=== PATIENT | male | born 1940 | race Caucasian/White ===

== ENCOUNTER 2023-03-30 17:03 | Inpatient (IN) | payer MEDICARE, SELFPAY ==
--- NOTE | ~2023-03-30 | XR_ITS ---
EXAMINATION: PORTABLE CHEST 1 VIEW CLINICAL INFORMATION: cp. COMPARISON: No recent pertinent prior studies are available for comparison. TECHNIQUE: Portable frontal view of the chest was obtained. FINDINGS: The lungs are hyperinflated. No focal infiltrate, effusion, edema, or pneumothorax. Cardiac and mediastinal silhouettes are within normal limits for size with vascular calcification in aorta. No acute bony abnormality seen. XR/XR chest 1V IMPRESSION: Hyperinflated but otherwise no evidence of acute disease.
--- NOTE | ~2023-03-30 | MR_ITS ---
EXAMINATION: MR BRAIN WITHOUT CONTRAST CLINICAL INFORMATION: TIA COMPARISON: CTA head and neck 03/30/2023 TECHNIQUE: Multiplanar multisequence MR imaging of the brain was obtained without intravenous contrast. FINDINGS: There is no acute infarct on diffusion-weighted imaging. There is no intracranial hemorrhage on iron-sensitive imaging. No extra-axial collection or mass effect/herniation. Patchy periventricular, deep white matter, and brainstem T2 FLAIR hyperintensities consistent with moderate underlying microangiopathy. 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 No hydrocephalus. Mild generalized cerebral volume loss with commensurate sulcal and ventricular prominence. The major flow voids at the skull base are preserved. The midline structures are normal. The cerebellar tonsils are normally positioned. The craniocervical junction is normal. Marrow signal is within normal limits. The visualized soft tissues are without significant abnormality. Right posterior ethmoid sinus opacification. Bilateral mastoid tip fluid. MR/MR head/brain wo con IMPRESSION: No acute infarct or other acute intracranial abnormality
--- NOTE | ~2023-03-30 | CT_ITS ---
EXAMINATION: CT HEAD WITHOUT CONTRAST (STROKE PROTOCOL) CLINICAL INFORMATION: Stroke protocol. Slurred speech, word searching. COMPARISON: None available. TECHNIQUE: Contiguous axial imaging was performed from the skull base to vertex without intravenous administration of contrast. This CT examination was performed using dose optimization techniques as appropriate, variously including the following: *Automated exposure control *Adjustment of mA and/or kV according to patient size (this includes techniques or standardized protocols for targeted exams where dose is matched to indication/reason for exam; i.e. extremities or head) *Use of iterative reconstruction technique DLP: 779 mGy-cm FINDINGS: There is no intracranial hemorrhage, hydrocephalus, extra-axial surface collection, midline shift, or other herniation pattern. There is loss of campbell-white differentiation in the left occipital lobe. Patchy low attenuation in the periventricular white matter consistent with chronic small vessel disease. The basilar cisterns are preserved. No significant soft tissue abnormality. No acute osseous abnormality. Mucosal retention cysts in the ethmoid sinuses. Surgical changes right maxillary sinus. CT/CT head for stroke IMPRESSION: Loss of campbell-white differentiation in the left occipital lobe without volume loss consistent with a late acute/subacute infarct. This does not fit the patient's presenting symptoms. CTA head and neck is pending. This critical result was discussed with Margaret Barcenas at 1731 hours on 03/30/2023. It was ascertained that the content and urgency of the report was understood at the time of direct communication.
--- NOTE | ~2023-03-30 | CT_ITS ---
EXAMINATION: CT ANGIOGRAM HEAD CT ANGIOGRAM NECK CLINICAL INFORMATION: Reason for Exam Slurred speech COMPARISON: Same day noncontrast head CT TECHNIQUE: Initial noncontrast customs and border protection officer imaging of the head and neck was performed. Comparison is made with noncontrast head CT from earlier today. Test bolus sequences followed by intravenous administration 70 mL of Omnipaque 350. Helical imaging was performed in the axial plane from the aortic arch to the skull vertex. Delayed postcontrast imaging of the head was also performed. The data was processed at the orthopedic radiologic technologist's workstation for generation of MIP sequences. Angled MIPs and volume rendered reformatted images were also generated at an offline 3D workstation. Stenoses are assessed in accordance with NASCET criteria unless otherwise indicated. DLP: 1629 mGy-cm This CT examination was performed using dose optimization techniques as appropriate, variously including the following: *Automated exposure control. *Adjustment of mA and/or kV according to patient size (this includes techniques or standardized protocols for targeted exams where dose is matched to indication/reason for exam; i.e. extremities or head). *Use of iterative reconstruction technique. FINDINGS: CT Head: Questionable region of hypodensity in the posterior left occipital lobe, noting that this is a region which is prone to artifact on CT There is no evidence of acute intracranial hemorrhage . Scattered hypoattenuation in the periventricular and deep white matter are consistent with moderate microangiopathy. Mcgill-white matter differentiation is preserved. The ventricles are normal in size and configuration. No evidence for obstructive hydrocephalus. No abnormal mass effect or midline shift. No extra-axial fluid collections. No pathologic intra-axial enhancement or regional oligemia. No acute soft tissue or osseous abnormalities. Mild scattered paranasal sinus mucosal thickening. Bilateral mastoid tip fluid. CT Neck: The thyroid gland and remaining cervical soft tissues are within normal limits. No significant abnormalities of the cervical spine. CT Upper Chest: The visualized lung apices and upper mediastinum are within normal limits. Neck CTA: Somewhat limited assessment of the proximal arteries in the upper mediastinum and lower neck secondary to motion artifact. Aortic Arch: Normal contour and caliber. Classic 3 vessel branching pattern of the aortic arch. Great Vessel Origins: There is calcified atherosclerotic disease involving the aortic arch branch vessel origins which are not well assessed due to streak artifact emanating from intravenous contrast within the left brachiocephalic vein. Calcified atherosclerotic disease involving the left subclavian artery proximal to the left vertebral artery origin as well as the proximal right subclavian artery without definite high-grade stenosis. Right Common Carotid Artery: Mild multifocal fibrofatty calcified atherosclerotic plaque without significant narrowing. Cervical Right Internal Carotid Artery: Calcified atherosclerotic disease involving the carotid bifurcation and proximal to mid right ICA results in high-grade approximately 80-90% stenosis of the right ICA origin and mild stenosis of the proximal to mid right cervical ICA. There is some calcified atherosclerotic disease involving the distal right cervical ICA without significant stenosis. Left Common Carotid Artery: Mild multifocal calcified atherosclerotic plaque without significant narrowing. Cervical Left Internal Carotid Artery: Calcified atherosclerotic disease involving left carotid bifurcation and proximal left ICA results in approximately 70% stenosis of the left ICA origin. Multifocal calcified atherosclerotic disease along the remainder of the left cervical ICA course with focal mild to moderate stenosis just proximal to the skull base. Cervical Right Vertebral Artery: The right vertebral artery origin and V1 segments are not visualized and likely occluded. There is reconstitution of the proximal V2 segment with moderate to high-grade stenosis of the proximal reconstituted V2 segment and otherwise patent cervical course. Cervical Left Vertebral Artery: Dominant. Suspected high-grade stenosis of the vessel origin. There is calcified atherosclerotic plaque along the V1 and proximal V2 segments without evidence of significant stenosis. Brain CTA: CTA of the head is somewhat technically limited secondary to extensive venous contamination. Intracranial Internal Carotid Arteries: Calcific atherosclerotic disease of the intracranial internal carotid arteries without occlusion or flow-limiting stenosis. Right Anterior Cerebral Artery: Normal A1 segment. Normal opacification of the distal VIVIEN segments. Left Anterior Cerebral Artery: Normal A1 segment. Normal opacification of the distal VIVIEN segments. Anterior Communicating Artery: Normal. Right Middle Cerebral Artery: Normal M1 segment of the MCA without focal stenosis or occlusion. Normal arborization of the distal segments. Left Middle Cerebral Artery: Normal M1 segment of the MCA without focal stenosis or occlusion. Normal arborization of the distal segments. Right Vertebral Artery: Mild calcified atherosclerotic disease proximally without significant stenosis. The intradural right vertebral artery appears highly stenotic at the vertebral basilar junction. Left Vertebral Artery: Mild calcified atherosclerotic disease proximally without significant stenosis. Basilar Artery: Mild to moderate stenosis of the proximal basilar artery related to fibrofatty plaque. The remainder of the basilar artery appears widely patent. Normal appearance of the proximal superior cerebellar arteries. Right Posterior Cerebral Artery: Normal P1 segment. Normal opacification of the distal CONTENT DEVELOPMENT MANAGER segments. Left Posterior Cerebral Artery: Normal P1 segment. Normal opacification of the distal CONTENT DEVELOPMENT MANAGER segments. Normal opacification of the superior sagittal, straight, transverse, and sigmoid sinuses. CT/CT angio head neck stroke IMPRESSION: Please note that evaluation of the arteries in the head and neck is somewhat technically limited including the proximal arteries in the neck secondary to motion, the aortic arch branch vessel origins related to streak artifact from intravenous contrast, and intracranial arterial vasculature related to venous contamination 1. 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 There is apparent high-grade stenosis of the distal nondominant intradural right vertebral artery at the vertebrobasilar junction. Mild to moderate stenosis of the proximal basilar artery No other arterial high-grade stenosis or large vessel occlusion of the intracranial circulation. Above impression was communicated to Dr. Barcenas on 03/30/2023 at 6:09 PM
--- NOTE | 2023-03-30 17:09 | ECG_ITS ---
Test Reason : STROKE Blood Pressure : / mmHG Vent. Rate : 083 BPM Atrial Rate : 083 BPM P-R Int : 214 ms QRS Dur : 156 ms QT Int : 446 ms P-R-T Axes : -05 -32 035 degrees QTc Int : 524 ms Sinus rhythm with 1st degree A-V block Left axis deviation Right bundle branch block Minimal voltage criteria for LVH, may be normal variant ( R in aVL ) Abnormal ECG No previous ECGs available Referred By: Margaret Barcenas Electronically Signed By:OVIDIO LOPEZ
[2023-03-30 17:14] LABS: Glucose, Whole Blood 192 mg/dL (60-115)
--- NOTE | 2023-03-30 17:23 | ED_ITS ---
HPI - Neuro Symptoms/Deficit General Chief Complaint: Neuro Symptoms/Deficit Stated Complaint: stroke alert, per ems Time Seen by Provider: 03/30/23 17:08 History of Present Illness HPI Narrative: patient is an 83-year-old male he was at a wedding. Having sudden onset of dizziness. Also had difficulty with his speech. Lasting for about a minute. His family stated he had a question facial droop. On EMS arrival the symptom was resolving. Patient's symptom has since completely resolved on arrival in the emergency department. Had no difficulty with speech normal facial droop patient from home. No history of diabetes, hypertension, high cholesterol. Not a smoker. Never had a heart attack. Relatively good health. Patient did admit to having 1 drink of alcohol he was at a wedding today. Denies any other recreational drug use. There is no systemic complaints. Related Data Allergies Allergy/AdvReac Type Severity Reaction Status Date / Time No Known Allergies Allergy Verified 03/30/23 17:09 Review of Systems 2 Review of Systems: No fever no chills no recreational drug use no history of hypoglycemia no history of diabetes Yes all other systems are reviewed and are negative [facility] Past Medical History Attestation statement: The following information was validated with the patient. Social History Social History Alcohol intake: current Alcohol type: beer Advance Directives: Yes Advance Directives Information Provided: No Advance Directives on File: No Physical Exam 2 Vital Signs: Vital Signs: Last Vital Signs Temp 97.4 F 03/30/23 17:37 Pulse 83 03/30/23 18:00 Resp 12 03/30/23 18:00 BP 199/64 H 03/30/23 18:00 Pulse Ox 99 03/30/23 18:00 O2 Del Method Room Air 03/30/23 18:00 BMI result Body Mass Index 26.4 Appearance: Alert. Oriented X3. No acute distress. Eyes: Pupils equal, round and reactive to light. ENT: Pharynx normal. Neck: Normal inspection. Neck supple. No lymph nodes noted. No crepitus CVS: Normal heart rate and rhythm. Pulses normal. Normal S1 and S2 Respiratory: No respiratory distress. Breath sounds normal. No Wheezing. No rales Abdomen: Soft and nontender. No rigidity. No distention. good BS x4 Skin: Skin warm and dry. Normal skin color. Normal skin turgor. Extremities: No lower extremity edema. Neurovascular intact to all extremities. No Lacerations. No Rash Neuro: Oriented X 3. No motor deficit. No sensory deficit. Moving all extermities. No slurred speech Medications Administered Discontinued Medications Generic Name Dose Route Start Last Admin Trade Name Blayneq PRN Reason Stop Dose Admin Iohexol 100 ml 03/30/23 17:24 03/30/23 17:25 Iohexol 350 Mg/Ml 100 Ml Infus..Btl IV 03/30/23 17:25 70 ml ONCE ONE Administration Medical Decision Making Medical Decision Making [facility] Narrative: patient's NIH stroke scale was 0. CT scan of the head showed area of subacute stroke in the occipital area. Not explaining patient's symptoms. CTA showed multiple occlusions intervertebral and in the carotid with collateral circulations. Fell patient is not a candidate for tPA given symptom has completely resolved. Will admit patient for further evaluation. Repeat exam patient is unchanged. NIH stroke scale was 0. case to be consulted by the hospitalist team for admission case discussed with hospitalist for admission. Neurologically unchanged completely intact. Differential Diagnosis Differential Diagnoses: The differential diagnosis associated with the presentation includes CVA, intracranial bleed, hypoglycemia Admission/Observation Consideration of admission/observation: Escalation of care including admission/observation considered Consult Healthcare Provider Management of the patient was discussed with: Hospitalist Lab Data [facility] Lab Attestation statement: I reviewed the patient's lab results. 03/30/23 17:58 03/30/23 17:58 Labs: Lab Results 03/30/23 03/30/23 Range/Units 17:09 17:58 WBC 9.6 (4.8-10.8) X10*3/uL RBC 4.88 (4.60-5.80) X10*6/uL Hgb 13.9 L (14.0-18.0) g/dl Hct 41.2 L (42.0-52.0) % MCV 84.4 (80.0-98.0) fL MCH 28.5 (27.0-33.0) pg MCHC 33.7 (31.0-36.0) g/dl RDW 14.6 (11.0-16.0) % Plt Count 237 (160-400) X10*3/uL MPV 9.5 (9.4-12.4) fL Immature Gran % (Auto) 0.4 (0.0-0.4) % Neut % (Auto) 81.7 H (45-73) % Lymph % (Auto) 10.6 L (20-40) % [place] % (Auto) 6.3 (2-11) % Eos % (Auto) 0.6 (0-4) % Baso % (Auto) 0.4 (0-2) % Lymph # (Auto) 1.0 L (1.2-4.9) X10*3/uL [place] # (Auto) 0.6 (0.1-1.2) X10*3/uL Eos # (Auto) 0.1 (0.0-0.4) X10*3/uL Baso # (Auto) 0.0 (0.0-0.2) X10*3/uL Abs Immat Gran (auto) 0.04 H (0.00-0.03) X10*3/uL Absolute Neuts (auto) 7.8 (2.0-8.3) x10*3/uL Absolute Nucleated RBC 0.000 (0.0-0.012) X10*3/uL Nucleated RBC % (auto) 0.0 (0.0-0.2) /100WBC PT 11.4 (11.1-13.3) SEC Whole Blood PT 12.3 (11.1-13.5) sec INR 0.9 (0.9-1.1) Whole Blood INR 1.0 (0.9-1.1) APTT 29.4 (26.0-36.4) SEC Sodium 140 (135-145) mmol/L Potassium 3.9 (3.3-5.1) mmol/L Chloride 109 H (96-108) mmol/L Carbon Dioxide 21 L (22-29) mmol/L Anion Gap 14 (12-20) BUN 25 H (9-16) mg/dL Creatinine 1.13 (0.5-1.4) mg/dL Estim Creat Clear Calc 54.6 Estimated GFR > 60 POC Glucose 192 H (60-115) mg/dL Random Glucose 194 H (60-115) mg/dL Calcium 9.0 (8.4-10.2) mg/dL Phosphorus 3.6 (2.7-4.5) mg/dL Magnesium 2.2 (1.6-2.6) mg/dL Total Bilirubin 0.3 (0.0-1.0) mg/dL Direct Bilirubin 0.1 (0.0-0.5) mg/dL AST 20 (5-37) U/L ALT 20 (0-40) U/L Alkaline Phosphatase 78 (39-117) U/L Total Creatine Kinase 61 (38-174) U/L Troponin I High Sens 3.3 (<3.5-35.0) ng/L Total Protein 6.7 (6.5-8.0) g/dL Albumin 3.7 (3.5-5.0) g/dL Ethyl Alcohol < 10 mg/dL Independent Interpretation I performed an independent interpretation of an: EKG Interpretation: my interpretation the patient's EKG showed a sinus rhythm heart rate is 80 [place] QRS QTC within normal limits is no acute ST segment elevation Independent Historian Clinical information obtained from an independent historian. History obtained from or confirmed by: Spouse additional history obtained through the spouse External Record Review there is no old record to be examine at [facility] Tests considered The following testing was considered but not selected: MRI of the brain but not available NIH Stroke Scale Internal: Initial- Upon Arrival Time: 18:51 Level of Consciousness: Alert Level of Consciousness Questions: Answers both questions correctly Level of Consciousness Commands: Performs both tasks correctly Best Gaze: Normal Visual: No visual loss Facial Palsy: Normal Motor Arm (Right): No drift Motor Arm (Left): No drift Motor Leg (Right): No drift Motor Leg (Left): No drift Limb Ataxia: Absent Sensory: Normal Best Language: No aphasia Dysarthia: Normal Extinction and Inattention: No abnormality Score: 0 Discharge Plan Discharge Clinical Impression: Cerebrovascular accident, Transient cerebral ischemia Patient Disposition: Admitted As Inpatient
[2023-03-30 17:24] LABS: Prothrombin Time Whole Bld POC 12.3 sec (11.1-13.5)
[2023-03-30] MEDS: iohexoL 350 MG/ML 100 ML INFUS..BTL IV (17:25)
[2023-03-30 17:37] VITALS: BP 204/62; BP 215/68; PULSE 78; PULSE 87; RESP 17; TEMP 36.3; O2SAT 97; BMI 26.4
[2023-03-30 18:00] VITALS: BP 199/64; PULSE 83; RESP 12; O2SAT 99
[2023-03-30 18:02] LABS: MANUAL DIFF FLAG NO
[2023-03-30 18:03] LABS: Basophils Percent Auto 0.4 % (0-2); Eosinophils Absolute Auto 0.1 X10*3/uL (0.0-0.4); Eosinophils Percent Auto 0.6 % (0-4); Hematocrit 41.2 % (42.0-52.0); Hemoglobin 13.9 g/dl (14.0-18.0); Imm Gran Abs Auto 0.04 X10*3/uL (0.00-0.03); Imm Gran Pct Auto 0.4 % (0.0-0.4); Lymphocytes Percent Auto 10.6 % (20-40); Mean Corpuscular HGB Conc 33.7 g/dl (31.0-36.0); Mean Corpuscular Hemoglobin 28.5 pg (27.0-33.0); Mean Corpuscular Volume 84.4 fL (80.0-98.0); Mean Platelet Volume 9.5 fL (9.4-12.4); Monocytes Absolute Auto 0.6 X10*3/uL (0.1-1.2); Monocytes Percent Auto 6.3 % (2-11); Neutrophils Absolute Auto 7.8 x10*3/uL (2.0-8.3); Neutrophils Percent Auto 81.7 % (45-73); Platelet Count 237 X10*3/uL (160-400); Red Blood Count 4.88 X10*6/uL (4.60-5.80); Red Cell Distribution Width 14.6 % (11.0-16.0); White Blood Count 9.6 X10*3/uL (4.8-10.8)
[2023-03-30 18:10] LABS: INTERNATIONAL NORM RATIO 0.9 (0.9-1.1); Prothrombin Time 11.4 SEC (11.1-13.3)
[2023-03-30 18:12] LABS: Partial Thromboplastin Time 29.4 SEC (26.0-36.4)
[2023-03-30 18:18] LABS: Alanine Aminotransferase 20 U/L (0-40); Albumin Level 3.7 g/dL (3.5-5.0); Alkaline Phosphatase 78 U/L (39-117); Anion Gap 14 (12-20); Aspartate Amino Transferase 20 U/L (5-37); Bilirubin Direct 0.1 mg/dL (0.0-0.5); Bilirubin Total 0.3 mg/dL (0.0-1.0); Blood Urea Nitrogen 25 mg/dL (9-16); Carbon Dioxide 21 mmol/L (22-29); Chloride 109 mmol/L (96-108); Creatinine Clr Calc Pharmacy 54.6; Estimated Glomerular Filt Rate > 60; Ethanol < 10 mg/dL; Glucose Random 194 mg/dL (60-115); Magnesium 2.2 mg/dL (1.6-2.6); Phosphorus 3.6 mg/dL (2.7-4.5); Potassium 3.9 mmol/L (3.3-5.1); Sodium 140 mmol/L (135-145); Total Protein 6.7 g/dL (6.5-8.0)
[2023-03-30 18:24] LABS: Troponin-I High Sensitivity 3.3 ng/L (<3.5-35.0)
[2023-03-30 18:25] LABS: Stroke Lab Use COMPLETE
--- NOTE | 2023-03-30 19:24 | PC.NURSE ---
pt given sandwich, applesauce, and gingerale, tolerating PO, present at the bedside, denies any complaints at this time
--- NOTE | 2023-03-30 20:22 | P.HPHOSP_ITS ---
History of Present Illness Date of Service: 03/30/23 Attending physician on admission: Natacha Kent Chief Complaint: slurred speech 83-year-old male with history of hyperlipidemia, peripheral artery disease s/p left fem-fem bypass graft thrombosis, claudication, hypertension, anxiety who is a current everyday nicotine vaper presented to the ED via EMS from a wedding due to sudden-onset dizziness, word-finding difficulty, and facial droop noted by family. On EMS arrival symptoms resolving. States they lasted for about a minute. He has never had similar symptoms before. His states he was also very pale. Denies any focal weakness or paresthesias. No dysphagia or visual changes. He does admit to having 1 drink of alcohol while he was at the wedding but denies any other substance use except for nicotine vaping as above. On arrival, patient hypertensive to 215/68 vitals otherwise normal. Blood pressure on admission 126/70-no antihypertensives administered. Hematology studies unremarkable. Renal function and electrolyte levels within normal limits. Lipid panel pending. Ethyl alcohol level below detectable limits. Chest x-ray showed hyperinflated lungs but otherwise no evidence of acute disease. Head CT shows loss of campbell-white matter differentiation in the left occipital lobe without volume loss consistent with a late acute/subacute infarct which does not fit the patient's presenting symptoms. Head CTA shows extensive atherosclerotic disease in the neck with notable high-grade stenoses and inclusions including occluded origin of the non dominant right vertebral artery with reconstitution of the V2 segments tandem focal moderate to high stenosis just distal to this reconstitution. There is also heavy calcified atherosclerotic disease involving the carotid bifurcations and proximal internal carotid arteries resulting in high-grade ICA stenosis measuring approximately 70% at the left ICA origin at 80-90% of the right ICA origin. There is also suspected high-grade stenosis of the dominant left vertebral artery origin. There is apparent high-grade stenosis of the distal non dominant intradural right vertebral artery at the vertebrobasilar junction and mild to moderate stenosis of the proximal basilar artery without any other arterial high-grade stenoses or LVO. EKG shows sinus rhythm, rate 83 with first-degree AV carole block and right bundle branch block. Review of Systems 2 Review of Systems: General: No fevers, malaise, unintentional weight loss HEENT: No blurred vision, diplopia. No sore throat, nasal congestion, rhinorrhea, sinus pain, ear pain Cardiovascular: No chest pain, palpitations, or leg edema Respiratory: No shortness of breath, wheezing, cough GI: No abdominal pain, nausea, vomiting, diarrhea, constipation, melena, hematochezia : No dysuria, hematuria, increased urinary frequency, decreased urinary output MSK: No myalgia, back pain Neuro: No headaches, weakness, paresthesias. +slurred speech, +facial droop Skin: No rashes or lesions [facility] Medical History Anxiety Nicotine dependence Peripheral artery disease Hyperlipidemia Hypertension Surgical History S/P femoral-femoral bypass surgery Social History Alcohol intake: current Alcohol type: beer Advance Directives: Yes Advance Directives Information Provided: No Advance Directives on File: No Meds Allergies Allergy/AdvReac Type Severity Reaction Status Date / Time No Known Allergies Allergy Verified 03/30/23 17:09 Active Medications: Current Medications Acetaminophen (Acetaminophen 325 Mg Tablet) 650 mg PO Q6H PRN PRN Reason: Pain, Mild (Pain Scale 1-3) Aspirin (Aspirin Enteric Coated 81 Mg Tablet.Dr) 81 mg PO DAILY JOLENE Atorvastatin Calcium (Atorvastatin Calcium 40 Mg Tablet) 40 mg PO BEDTIME JOLENE Docusate Sodium (Docusate Sodium 100 Mg Capsule) 100 mg PO DAILY PRN PRN Reason: Constipation Enoxaparin Sodium (Enoxaparin Sodium 40 Mg/0.4 Ml Syringe) 40 mg SUBCUT Q24H JOLENE Ondansetron HCl (Ondansetron Hcl 4 Mg/2 Ml Vial) 4 mg IVPUSH Q8H PRN PRN Reason: Nausea and Vomiting Sodium Chloride (0.9 % Sodium Chloride Flush 3 Ml Syringe) 3 ml IVFLUSH QSHIFT JOLENE Physical Exam 2 Vital Signs and Narrative: Vital Signs: Last Vital Signs Temp 97.4 F 03/30/23 17:37 Pulse 83 03/30/23 18:00 Resp 12 03/30/23 18:00 BP 199/64 H 03/30/23 18:00 Pulse Ox 99 03/30/23 18:00 O2 Del Method Room Air 03/30/23 18:00 BMI result Body Mass Index 26.4 Constitutional - Awake and Alert, No apparent distress Eyes - PERRLA, EOMI Cardiovascular - S1S2, RRR, No edema Respiratory - Normal lung expansion, Normal respiratory effort, No respiratory distress, CTA bilaterally Gastrointestinal - NT / ND; +BS; No rebound or guarding Extremities - no calf tenderness bilaterally, no swelling Skin - Warm/Dry Neurological - Alert & oriented x3, CN II-XII in tact, 5/5 strength BUE and BLE Psychological - Appropriate affect Results Labs 03/30/23 17:58 03/30/23 17:58 Labs: Laboratory Results - last 24 hr 03/30/23 03/30/23 17:09 17:58 MCV 84.4 MCH 28.5 MCHC 33.7 RDW 14.6 Plt Count 237 MPV 9.5 Immature Gran % (Auto) 0.4 Neut % (Auto) 81.7 H Lymph % (Auto) 10.6 L [place] % (Auto) 6.3 Eos % (Auto) 0.6 Baso % (Auto) 0.4 Lymph # (Auto) 1.0 L [place] # (Auto) 0.6 Eos # (Auto) 0.1 Baso # (Auto) 0.0 Abs Immat Gran (auto) 0.04 H Absolute Neuts (auto) 7.8 Absolute Nucleated RBC 0.000 Nucleated RBC % (auto) 0.0 PT 11.4 Whole Blood PT 12.3 INR 0.9 Whole Blood INR 1.0 APTT 29.4 Anion Gap 14 Estim Creat Clear Calc 54.6 Estimated GFR > 60 POC Glucose 192 H Random Glucose 194 H Calcium 9.0 Phosphorus 3.6 Magnesium 2.2 Total Bilirubin 0.3 Direct Bilirubin 0.1 AST 20 ALT 20 Alkaline Phosphatase 78 Total Creatine Kinase 61 Total Protein 6.7 Albumin 3.7 Ethyl Alcohol < 10 Imaging Radiologist's Impressions: Impressions Head CT 03/30/23 17:14 IMPRESSION: Loss of campbell-white differentiation in the left occipital lobe without volume loss consistent with a late acute/subacute infarct. This does not fit the patient's presenting symptoms. CTA head and neck is pending. This critical result was discussed with Margaret Barcenas at 1731 hours on 03/30/2023. It was ascertained that the content and urgency of the report was understood at the time of direct communication. Chest X-Ray 03/30/23 17:20 IMPRESSION: Hyperinflated but otherwise no evidence of acute disease. Head/Neck CTA 03/30/23 17:32 IMPRESSION: Please note that evaluation of the arteries in the head and neck is somewhat technically limited including the proximal arteries in the neck secondary to motion, the aortic arch branch vessel origins related to streak artifact from intravenous contrast, and intracranial arterial vasculature related to venous contamination 1. 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 There is apparent high-grade stenosis of the distal nondominant intradural right vertebral artery at the vertebrobasilar junction. Mild to moderate stenosis of the proximal basilar artery No other arterial high-grade stenosis or large vessel occlusion of the intracranial circulation. Above impression was communicated to Dr. Barcenas on 03/30/2023 at 6:09 PM Assessment and Plan (1) Transient cerebral ischemia: Status: Acute Plan 83-year-old male with history of hyperlipidemia, peripheral artery disease s/p left fem-fem bypass graft thrombosis, claudication, hypertension, anxiety who is a current everyday nicotine vaper to be observed for suspected TIA #Acute suspected TIA -symptoms lightheadedness, facial droop, and slurred speech now fully resolved -will also check orthostatic vital signs -head CT negative for any acute intracranial abnormality that could explain the symptoms. Does show possible late acute/subacute infarct in the left occipital lobe. Extensive atherosclerotic and stenotic changes in the head/neck CTA -neurochecks -ASA 325 mg now, ASA 81 mg daily -change simvastatin to atorvastatin 40 mg daily -lipid profile pending -neurology consult -consider vascular surgery consult -echocardiogram a.m. -MRI a.m. -monitor on telemetry # peripheral artery disease -extensive arterial disease noted on head/neck CTA -consider outpatient vascular surgery consult -continue baby aspirin daily -Continue pentoxifylline #HLD -atorvastatin as above -lipid panel pending #HTN -Pt normotensive on admission -continue amlodipine 5 mg daily # nicotine dependence -vapes nicotine regularly, declines NRT cessation counseling advised DVT prophylaxis- lovenox Full code Time Spent With Patient Time: Total time managing care of this patient today ____ minutes. Quality Stroke Does the patient have a stroke diagnosis?: Yes Reason for No Anti-thrombotic by Day Two: Drug treatment not indicated VTE Prior VTE?: No VTE Risk Level:: Medical - moderate - high VTE Device Contraindication: Treatment Not Indicated VTE Drug Contraindication: N/A - Med Ordered
[2023-03-30 20:30] LABS: Appearance Urine Clear; Color Urine Yellow; Glucose Urine UA 100 mg/dL (Negative); Leukocyte Esterase Urine Negative (Negative); Nitrite Urine Negative (Negative); PH 5.5 (5.0-9.0); Specific Gravity - Urine >= 1.030 (1.005-1.025); UMIC TRIGGER UACC YES; Urine Blood Negative (Negative); Urine Ketones Trace mg/dL (Negative); Urine Protein 100 (2+) mg/dL (Neg-Trace)
[2023-03-30 20:33] LABS: Cholesterol 198 mg/dL (<200); HDL Cholesterol 47 mg/dL (>40); LDL Cholesterol Calculated 96 mg/dL (<100); Triglycerides 276 mg/dL (<150)
[2023-03-30 20:42] LABS: Bacteria Urine None Seen (None Seen); Hyaline Casts Urine 0-2 /LPF (0-2); RBC Urine 0-2 /HPF (0-2); Squamous Epithelial Cell Urine 0-2 /HPF (0-2); WBC Urine 0-5 /HPF (0-5)
[2023-03-30] MEDS: Enoxaparin Sodium 40 MG/0.4 ML SYRINGE SUBCUT (20:50)
[2023-03-30] MEDS: Aspirin Enteric Coated 325 MG TABLET.DR PO (20:51)
[2023-03-30] MEDS: Atorvastatin Calcium 40 MG TABLET PO (20:51)
[2023-03-30 22:05] VITALS: BP 170/56; PULSE 74; RESP 15; TEMP 36.8; O2SAT 97
[2023-03-31] MEDS: 0.9 % Sodium Chloride Flush 3 ML SYRINGE IVFLUSH ×2 (01:07→09:29)
[2023-03-31 01:39] VITALS: BMI 25.5
[2023-03-31 02:49] VITALS: BP 175/72; PULSE 58; RESP 15; TEMP 36.5; O2SAT 96
[2023-03-31 04:00] VITALS: BP 174/74; PULSE 77; RESP 14; TEMP 37.1; O2SAT 98
[2023-03-31 06:08] LABS: MANUAL DIFF FLAG NO
[2023-03-31 06:13] LABS: Basophils Percent Auto 0.2 % (0-2); Eosinophils Absolute Auto 0.1 X10*3/uL (0.0-0.4); Eosinophils Percent Auto 1.7 % (0-4); Hematocrit 36.6 % (42.0-52.0); Hemoglobin 12.4 g/dl (14.0-18.0); Imm Gran Abs Auto 0.04 X10*3/uL (0.00-0.03); Imm Gran Pct Auto 0.5 % (0.0-0.4); Lymphocytes Absolute Auto 1.9 X10*3/uL (1.2-4.9); Lymphocytes Percent Auto 22.8 % (20-40); Mean Corpuscular HGB Conc 33.9 g/dl (31.0-36.0); Mean Corpuscular Hemoglobin 28.6 pg (27.0-33.0); Mean Corpuscular Volume 84.5 fL (80.0-98.0); Mean Platelet Volume 9.8 fL (9.4-12.4); Monocytes Absolute Auto 0.7 X10*3/uL (0.1-1.2); Neutrophils Absolute Auto 5.4 x10*3/uL (2.0-8.3); Neutrophils Percent Auto 65.8 % (45-73); Platelet Count 254 X10*3/uL (160-400); Red Blood Count 4.33 X10*6/uL (4.60-5.80); Red Cell Distribution Width 14.6 % (11.0-16.0); White Blood Count 8.2 X10*3/uL (4.8-10.8)
[2023-03-31 06:39] LABS: Anion Gap 11 (12-20); Blood Urea Nitrogen 21 mg/dL (9-16); Calcium 8.6 mg/dL (8.4-10.2); Carbon Dioxide 25 mmol/L (22-29); Chloride 108 mmol/L (96-108); Estimated Glomerular Filt Rate > 60; Glucose Random 126 mg/dL (60-115); Potassium 3.8 mmol/L (3.3-5.1); Sodium 140 mmol/L (135-145)
[2023-03-31 07:50] VITALS: BP 180/82; PULSE 62; RESP 13; TEMP 37.1; O2SAT 96
--- NOTE | 2023-03-31 08:09 | MHC.CM.PN ---
CM met with Patient at bedside and addressed CADENA with him, providing Patient with the original and placing a copy on the chart. 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 Patient's goal is to return home self care and CM has initiated and will follow for dc planning.PCP is Dr. Jeremie Chery.
--- NOTE | 2023-03-31 08:22 | PHA.MEDREC ---
Pharmacy Consult ? Medication Reconciliation Pharmacy has completed the medication reconciliation. spoke with patient to confirm medications.
[2023-03-31] MEDS: Aspirin Enteric Coated 81 MG TABLET.DR PO (09:28)
[2023-03-31] MEDS: Pentoxifylline ER 400 MG TABLET.ER PO ×2 (09:28→15:41)
[2023-03-31 11:35] VITALS: BP 158/60; PULSE 58; RESP 15; TEMP 36.8; O2SAT 98
--- NOTE | 2023-03-31 12:44 | P.PNIM_ITS ---
Subjective Subjective Date of Service: 03/31/23 Interval History: dizziness, word-finding difficulty, and facial droop have resolved no weakness Review of Systems Review of Systems: Yes all other systems are reviewed and are negative Physical Exam 2 Vital Signs: Vital Signs: Last Vital Signs Temp 98.2 F 03/31/23 11:35 Pulse 58 03/31/23 11:35 Resp 15 03/31/23 11:35 BP 158/60 H 03/31/23 11:35 Pulse Ox 98 03/31/23 11:35 O2 Del Method Room Air 03/31/23 11:35 BMI result Body Mass Index 25.5 Gen: in no acute distress HEENT: sclera anicteric, moist mucus membranes Neck: supple Lungs: clear to auscultation bilaterally Heart: regular rate and rhythm, no murmurs Abd: soft, non-tender, non-distended Ext: no edema Skin: warm/well-perfused Neuro: alert and oriented x3, no facial droop, no pronator drift, no extremity weakness Psych: appropriate affect Objective Data Active Medications Acetaminophen (Acetaminophen 325 Mg Tablet) 650 mg PO Q6H PRN PRN Reason: Pain, Mild (Pain Scale 1-3) Amlodipine Besylate (Amlodipine Besylate 5 Mg Tablet) 5 mg PO DAILY [facility]; Protocol Aspirin (Aspirin Enteric Coated 81 Mg Tablet.) 81 mg PO DAILY [facility] Last Admin: 03/31/23 09:28 Dose: 81 mg Documented By: KHOA Atorvastatin Calcium (Atorvastatin Calcium 40 Mg Tablet) 40 mg PO BEDTIME [facility] Last Admin: 03/30/23 20:51 Dose: 40 mg Documented By: REBEKAH Docusate Sodium (Docusate Sodium 100 Mg Capsule) 100 mg PO DAILY PRN PRN Reason: Constipation Enoxaparin Sodium (Enoxaparin Sodium 40 Mg/0.4 Ml Syringe) 40 mg SUBCUT Q24H [facility] Last Admin: 03/30/23 20:50 Dose: 40 mg Documented By: REBEKAH Multivitamins/Vitamin C (Multivitamin Tablet) 1 tab PO DAILY [facility] Ondansetron HCl (Ondansetron Hcl 4 Mg/2 Ml Vial) 4 mg IVPUSH Q8H PRN PRN Reason: Nausea and Vomiting Pentoxifylline (Pentoxifylline Er 400 Mg Tablet.Er) 400 mg PO TID [facility] Last Admin: 03/31/23 09:28 Dose: 400 mg Documented By: KHOA Sodium Chloride (0.9 % Sodium Chloride Flush 3 Ml Syringe) [facility] Last Admin: 03/31/23 09:29 Dose: 3 ml Documented By: KHOA Labs 03/31/23 05:49 03/31/23 05:49 Labs: Laboratory Results - last 24 hr 03/30/23 03/30/23 03/30/23 17:09 17:58 20:23 MCV 84.4 MCH 28.5 MCHC 33.7 RDW 14.6 Plt Count 237 MPV 9.5 Immature Gran % (Auto) 0.4 Neut % (Auto) 81.7 H Lymph % (Auto) 10.6 L [place] % (Auto) 6.3 Eos % (Auto) 0.6 Baso % (Auto) 0.4 Lymph # (Auto) 1.0 L [place] # (Auto) 0.6 Eos # (Auto) 0.1 Baso # (Auto) 0.0 Abs Immat Gran (auto) 0.04 H Absolute Neuts (auto) 7.8 Absolute Nucleated RBC 0.000 Nucleated RBC % (auto) 0.0 PT 11.4 Whole Blood PT 12.3 INR 0.9 Whole Blood INR 1.0 APTT 29.4 Anion Gap 14 Estim Creat Clear Calc 54.6 Estimated GFR > 60 POC Glucose 192 H Random Glucose 194 H Calcium 9.0 Phosphorus 3.6 Magnesium 2.2 Total Bilirubin 0.3 Direct Bilirubin 0.1 AST 20 ALT 20 Alkaline Phosphatase 78 Total Creatine Kinase 61 Total Protein 6.7 Albumin 3.7 Triglycerides 276 H Cholesterol 198 LDL Cholesterol, Calc 96 HDL Cholesterol 47 Urine Color Yellow Urine Appearance Clear Urine pH 5.5 Ur Specific [place] >= 1.030 H Urine Protein 100 (2+) H Urine Glucose (UA) 100 H Urine Ketones Trace Urine Blood Negative Urine Nitrite Negative Ur Leukocyte Esterase Negative Urine RBC 0-2 Urine WBC 0-5 Ur Squamous Epith Cells 0-2 Urine Bacteria None Seen Hyaline Casts 0-2 Ethyl Alcohol < 10 03/31/23 05:49 MCV 84.5 MCH 28.6 MCHC 33.9 RDW 14.6 Plt Count 254 MPV 9.8 Immature Gran % (Auto) 0.5 H Neut % (Auto) 65.8 Lymph % (Auto) 22.8 [place] % (Auto) 9.0 Eos % (Auto) 1.7 Baso % (Auto) 0.2 Lymph # (Auto) 1.9 [place] # (Auto) 0.7 Eos # (Auto) 0.1 Baso # (Auto) 0.0 Abs Immat Gran (auto) 0.04 H Absolute Neuts (auto) 5.4 Absolute Nucleated RBC 0.000 Nucleated RBC % (auto) 0.0 PT Whole Blood PT INR Whole Blood INR APTT Anion Gap 11 L Estim Creat Clear Calc 67.0 Estimated GFR > 60 POC Glucose Random Glucose 126 H Calcium 8.6 Phosphorus Magnesium Total Bilirubin Direct Bilirubin AST ALT Alkaline Phosphatase Total Creatine Kinase Total Protein Albumin Triglycerides Cholesterol LDL Cholesterol, Calc HDL Cholesterol Urine Color Urine Appearance Urine pH Ur Specific [place] Urine Protein Urine Glucose (UA) Urine Ketones Urine Blood Urine Nitrite Ur Leukocyte Esterase Urine RBC Urine WBC Ur Squamous Epith Cells Urine Bacteria Hyaline Casts Ethyl Alcohol Assessment and Plan (1) Transient cerebral ischemia: Status: Acute Plan d2 83yo M with HLD, PAD s/p L fem-fem bypass, HTN, tobacco abuse presenting after episode of sudden-onset dizziness, word-finding difficulty, and facial droop that resolved after 1 found to be hypretensive, CT with late acute/subacute infarct in L occipital lobe, CTA with extensive atherosclerotic disease in the neck: 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 with reconstitution of the V2 segment and tandem focal moderate to high-grade stenosis just distal to this reconstitution * Heavy calcified atherosclerotic disease involving the carotid bifurcations and proximal internal carotid arteries resulting in high-grade ICA stenosis measuring approximately 70% at the left ICA origin and 80-90% of the right ICA origin * Suspected high-grade stenosis of the dominant left vertebral artery origin CVA - MRI - Neurology consult - ASA, atorvastatin - TTE, cardiac monitoring PVD - pentoxyfilline - ASA, atorvastatin - Vascular Surgery outpt f/u HTN - amlodipine tobacco abuse - declines NRT VTE ppx - LMWH dispo - likely home eventually In my clinical judgment, the patient requires continued inpatient hospitalization for the following reasons: CVA workup Time Spent With Patient Time: Total time managing care of this patient today ____35 minutes. Quality Stroke Does the patient have a stroke diagnosis?: Yes Reason for No Anti-thrombotic by Day Two: Drug treatment not indicated VTE Prior VTE?: No VTE Risk Level:: Medical - moderate - high VTE Device Contraindication: Treatment Not Indicated VTE Drug Contraindication: N/A - Med Ordered
--- NOTE | 2023-03-31 15:12 | PM.DS ---
DS: Providers Provider Date of Service: 03/31/23 Date of admission: 03/31/23 12:55 Date of discharge: 03/31/23 Primary care physician: Jeremie Chery MD Consults: 03/30/23 20:19 Consult to Neurology Routine Consulting Provider: Sonya Lima Reason for consultation: ?tia DS: Diagnosis Discharge Diagnosis (1) Transient cerebral ischemia: Status: Acute (2) Cerebrovascular disease: Status: Acute DS: Summary Hospital Course Hospital Course: from admission H+P by hospitalist JO Partida, 03/30/23: 83-year-old male with history of hyperlipidemia, peripheral artery disease s/p left fem-fem bypass graft thrombosis, claudication, hypertension, anxiety who is a current everyday nicotine vaper presented to the ED via EMS from a wedding due to sudden-onset dizziness, word-finding difficulty, and facial droop noted by family. On EMS arrival symptoms resolving. States they lasted for about a minute. He has never had similar symptoms before. His states he was also very pale. Denies any focal weakness or paresthesias. No dysphagia or visual changes. He does admit to having 1 drink of alcohol while he was at the wedding but denies any other substance use except for nicotine vaping as above. On arrival, patient hypertensive to 215/68 vitals otherwise normal. Blood pressure on admission 126/70-no antihypertensives administered. Hematology studies unremarkable. Renal function and electrolyte levels within normal limits. Lipid panel pending. Ethyl alcohol level below detectable limits. Chest x-ray showed hyperinflated lungs but otherwise no evidence of acute disease. Head CT shows loss of campbell-white matter differentiation in the left occipital lobe without volume loss consistent with a late acute/subacute infarct which does not fit the patient's presenting symptoms. Head CTA shows extensive atherosclerotic disease in the neck with notable high-grade stenoses and inclusions including occluded origin of the non dominant right vertebral artery with reconstitution of the V2 segments tandem focal moderate to high stenosis just distal to this reconstitution. There is also heavy calcified atherosclerotic disease involving the carotid bifurcations and proximal internal carotid arteries resulting in high-grade ICA stenosis measuring approximately 70% at the left ICA origin at 80-90% of the right ICA origin. There is also suspected high-grade stenosis of the dominant left vertebral artery origin. There is apparent high-grade stenosis of the distal non dominant intradural right vertebral artery at the vertebrobasilar junction and mild to moderate stenosis of the proximal basilar artery without any other arterial high-grade stenoses or LVO. EKG shows sinus rhythm, rate 83 with first-degree AV carole block and right bundle branch block. 83yo M with HLD, PAD s/p L fem-fem bypass, HTN, tobacco abuse; presenting after episode of sudden-onset dizziness, word-finding difficulty, and facial droop that resolved after 1 ; found to be hypretensive, CT with questionable region of hypodensity in the posterior left occipital lobe, noting that this is a region which is prone to artifact on CT and this did not correspond to the patient's clinical presentation. CTA with extensive atherosclerotic disease in the neck: 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 with reconstitution of the V2 segment and tandem focal moderate to high-grade stenosis just distal to this reconstitution * Heavy calcified atherosclerotic disease involving the carotid bifurcations and proximal internal carotid arteries resulting in high-grade ICA stenosis measuring approximately 70% at the left ICA origin and 80-90% of the right ICA origin * Suspected high-grade stenosis of the dominant left vertebral artery origin He was admitted to the [facility] on observation. No recurrence of symptoms. MRI was negative for acute infarct. Aspirin was continued and statin was intensified to atorvastatin 80 mg qhs. He should follow up with his primary care doctor to consider TTE + cardiac event monitoring, though no arrhythmias on telemetry here. He should also see his vascular surgeon regarding the extensive atherosclerotic carotid disease noted on CTA. Time Spent with Patient Time attestation: Total time managing care of this patient today ____ minutes. Discharge coordination time: Greater than 30 minutes Quality: Safe Use of Opioids Does Pt have an Active Cancer Diagnosis on the Problem List?: No Quality: Stroke Does the patient have a stroke diagnosis?: No Physical Exam Vital Signs: Vital Signs: Last Vital Signs Temp 98.2 F 03/31/23 11:35 Pulse 58 03/31/23 11:35 Resp 15 03/31/23 11:35 BP 158/60 H 03/31/23 11:35 Pulse Ox 98 03/31/23 11:35 O2 Del Method Room Air 03/31/23 11:35 BMI result Body Mass Index 25.5 Gen: in no acute distress HEENT: sclera anicteric, moist mucus membranes Neck: supple Lungs: clear to auscultation bilaterally Heart: regular rate and rhythm, no murmurs Abd: soft, non-tender, non-distended Ext: no edema Skin: warm/well-perfused Neuro: alert and oriented x3, no focal findings Psych: appropriate affect DS: Data Data Completed and Pending Completed studies during hospitalization [Text1]: Laboratory Results WBC 8.2 X10*3/uL (4.8-10.8) 03/31/23 05:49 RBC 4.33 X10*6/uL (4.60-5.80) L 03/31/23 05:49 Hgb 12.4 g/dl (14.0-18.0) L 03/31/23 05:49 Hct 36.6 % (42.0-52.0) L 03/31/23 05:49 MCV 84.5 fL (80.0-98.0) 03/31/23 05:49 MCH 28.6 pg (27.0-33.0) 03/31/23 05:49 MCHC 33.9 g/dl (31.0-36.0) 03/31/23 05:49 RDW 14.6 % (11.0-16.0) 03/31/23 05:49 Plt Count 254 X10*3/uL (160-400) 03/31/23 05:49 MPV 9.8 fL (9.4-12.4) 03/31/23 05:49 Immature Gran % (Auto) 0.5 % (0.0-0.4) H 03/31/23 05:49 Neut % (Auto) 65.8 % (45-73) 03/31/23 05:49 Lymph % (Auto) 22.8 % (20-40) 03/31/23 05:49 [place] % (Auto) 9.0 % (2-11) 03/31/23 05:49 Eos % (Auto) 1.7 % (0-4) 03/31/23 05:49 Baso % (Auto) 0.2 % (0-2) 03/31/23 05:49 Lymph # (Auto) 1.9 X10*3/uL (1.2-4.9) 03/31/23 05:49 [place] # (Auto) 0.7 X10*3/uL (0.1-1.2) 03/31/23 05:49 Eos # (Auto) 0.1 X10*3/uL (0.0-0.4) 03/31/23 05:49 Baso # (Auto) 0.0 X10*3/uL (0.0-0.2) 03/31/23 05:49 Abs Immat Gran (auto) 0.04 X10*3/uL (0.00-0.03) H 03/31/23 05:49 Absolute Neuts (auto) 5.4 x10*3/uL (2.0-8.3) 03/31/23 05:49 Absolute Nucleated RBC 0.000 X10*3/uL (0.0-0.012) 03/31/23 05:49 Nucleated RBC % (auto) 0.0 /100WBC (0.0-0.2) 03/31/23 05:49 PT 11.4 SEC (11.1-13.3) 03/30/23 17:58 Whole Blood PT 12.3 sec (11.1-13.5) 03/30/23 17:09 INR 0.9 (0.9-1.1) 03/30/23 17:58 Whole Blood INR 1.0 (0.9-1.1) 03/30/23 17:09 APTT 29.4 SEC (26.0-36.4) 03/30/23 17:58 Sodium 140 mmol/L (135-145) 03/31/23 05:49 Potassium 3.8 mmol/L (3.3-5.1) 03/31/23 05:49 Chloride 108 mmol/L (96-108) 03/31/23 05:49 Carbon Dioxide 25 mmol/L (22-29) 03/31/23 05:49 Anion Gap 11 (12-20) L 03/31/23 05:49 BUN 21 mg/dL (9-16) H 03/31/23 05:49 Creatinine 0.92 mg/dL (0.5-1.4) 03/31/23 05:49 Estim Creat Clear Calc 67.0 03/31/23 05:49 Estimated GFR > 60 03/31/23 05:49 POC Glucose 192 mg/dL (60-115) H 03/30/23 17:09 Random Glucose 126 mg/dL (60-115) H 03/31/23 05:49 Calcium 8.6 mg/dL (8.4-10.2) 03/31/23 05:49 Phosphorus 3.6 mg/dL (2.7-4.5) 03/30/23 17:58 Magnesium 2.2 mg/dL (1.6-2.6) 03/30/23 17:58 Total Bilirubin 0.3 mg/dL (0.0-1.0) 03/30/23 17:58 Direct Bilirubin 0.1 mg/dL (0.0-0.5) 03/30/23 17:58 AST 20 U/L (5-37) 03/30/23 17:58 ALT 20 U/L (0-40) 03/30/23 17:58 Alkaline Phosphatase 78 U/L (39-117) 03/30/23 17:58 Total Creatine Kinase 61 U/L (38-174) 03/30/23 17:58 Troponin I High Sens 3.3 ng/L (<3.5-35.0) 03/30/23 17:58 Total Protein 6.7 g/dL (6.5-8.0) 03/30/23 17:58 Albumin 3.7 g/dL (3.5-5.0) 03/30/23 17:58 Triglycerides 276 mg/dL (<150) H 03/30/23 17:58 Cholesterol 198 mg/dL (<200) 03/30/23 17:58 LDL Cholesterol, Calc 96 mg/dL (<100) 03/30/23 17:58 HDL Cholesterol 47 mg/dL (>40) 03/30/23 17:58 Urine Color Yellow 03/30/23 20:23 Urine Appearance Clear 03/30/23 20:23 Urine pH 5.5 (5.0-9.0) 03/30/23 20:23 Ur Specific [place] >= 1.030 (1.005-1.025) H 03/30/23 20:23 Urine Protein 100 (2+) mg/dL (Neg-Trace) H 03/30/23 20:23 Urine Glucose (UA) 100 mg/dL (Negative) H 03/30/23 20:23 Urine Ketones Trace mg/dL (Negative) 03/30/23 20:23 Urine Blood Negative (Negative) 03/30/23 20:23 Urine Nitrite Negative (Negative) 03/30/23 20:23 Ur Leukocyte Esterase Negative (Negative) 03/30/23 20:23 Urine RBC 0-2 /HPF (0-2) 03/30/23 20:23 Urine WBC 0-5 /HPF (0-5) 03/30/23 20:23 Ur Squamous Epith Cells 0-2 /HPF (0-2) 03/30/23 20:23 Urine Bacteria None Seen (None Seen) 03/30/23 20:23 Hyaline Casts 0-2 /LPF (0-2) 03/30/23 20:23 Ethyl Alcohol < 10 mg/dL 03/30/23 17:[address] 03/30/23 17:14 IMPRESSION: Loss of campbell-white differentiation in the left occipital lobe without volume loss consistent with a late acute/subacute infarct. This does not fit the patient's presenting symptoms. CTA head and neck is pending. This critical result was discussed with Margaret Barcenas at 1731 hours on 03/30/2023. It was ascertained that the content and urgency of the report was understood at the time of direct communication. Chest X-Ray 03/30/23 17:20 IMPRESSION: Hyperinflated but otherwise no evidence of acute disease. Head/Neck CTA 03/30/23 17:32 IMPRESSION: Please note that evaluation of the arteries in the head and neck is somewhat technically limited including the proximal arteries in the neck secondary to motion, the aortic arch branch vessel origins related to streak artifact from intravenous contrast, and intracranial arterial vasculature related to venous contamination 1. 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 There is apparent high-grade stenosis of the distal nondominant intradural right vertebral artery at the vertebrobasilar junction. Mild to moderate stenosis of the proximal basilar artery No other arterial high-grade stenosis or large vessel occlusion of the intracranial circulation. Above impression was communicated to Dr. Barcenas on 03/30/2023 at 6:09 PM Brain MRI 03/31/23 14:00 IMPRESSION: No acute infarct or other acute intracranial abnormality Discharge Plan Discharge Anticipated Discharge Date/Time: 03/31/23 14:59 Patient Disposition: Home, Self-Care Discharge Diagnosis: TIA extensive vascular disease Referrals: Physician,Unknown J [Primary Care Provider] - 1 Week Discharge Medications: New atorvastatin 80 mg tablet 80 mg PO BEDTIME Qty: 30 0RF Rx Instructions: replaces simvastatin Continued pentoxifylline 400 mg tablet extended release 400 mg PO TID aspirin 81 mg Tablet 81 mg PO DAILY amlodipine 5 mg tablet 5 mg PO DAILY multivitamin Tablet 1 tab PO DAILY Discontinued simvastatin 80 mg tablet 80 mg PO BEDTIME Discharge Orders: Discharge Order (Routine); Ordered 03/31/23 Ordered By: Kate Alvarado Diet: Mediterranean Activity on Discharge: As tolerated Stand Alone Forms: Patient Portal Discharge page Care Plan Goals: stroke prevention Health Concerns: TIA extensive cerebrovascular disease Plan of Treatment: aspirin 81 mg daily atorvastatin 80 mg daily follow up with primary care; consider echocardiogram + cardiac event monitor follow up with vascular surgery Assessment: See Discharge Summary.
--- NOTE | 2023-03-31 15:20 | MHC.CM.PN ---
Patient has been medically cleared for dc to home today, self care.
--- NOTE | 2023-03-31 16:16 | PC.NURSE ---
Pt A&OX4 speech clear, face symmetric, tongue midline. [place] to command 5/5, sensation intact, +pp bilat no edema noted. Denies headache, dizziness or vision changes pupils PERRL 2B. LSCTA denies SOB or CP, NS on tele. BS+X4 abdomen soft non-tender denies nausea/vomiting. Denies pain/discomfort. Off unit for MRI in afternoon. Discharged to home late afternoon IV removed from left arm cath intact. Pt provided with discharge instructions able to teach back meds follow up and care.
== END 2023-03-31 16:05 | disposition home or self-care (01) | DRG 69 ==
LOC: HO.ED 18:54 → HO.EDOVER 20:23 → HO.IMC 03-31 00:07
PROVIDERS: Admitting Provider Physician Assistant; Emergency Provider Emergency Medicine Emergency Medical Services; PCP Internal Medicine; Visit Provider Family Medicine
DX: G45.9 Transient cerebral ischemic attack, unspecified (principal); E78.5 Hyperlipidemia, unspecified; I65.23 Occlusion and stenosis of bilateral carotid arteries; I10 Essential (primary) hypertension; I65.02 Occlusion and stenosis of left vertebral artery; F41.9 Anxiety disorder, unspecified; I70.202 Unspecified atherosclerosis of native arteries of extremities, left leg; Z87.891 Personal history of nicotine dependence; Z79.82 Long term (current) use of aspirin; Z79.899 Other long term (current) drug therapy
CPT/HCPCS: 36415; 70450; 70496; 70498; 70551; 71045; 80048; 80061; 80076; 80307; 81001; 82550; 82947; 83735; 84100; 84484; 85025; 85610; 85730; 93005; 99222; 99285; J1650; Q9967

== ENCOUNTER → 2023-03-30 20:17 | Outpatient (BNV) | payer MEDICARE, SELFPAY | PROVIDERS: Admitting Provider Physician Assistant; Emergency Provider Emergency Medicine Emergency Medical Services; Visit Provider Physician Assistant | DX: G45.9 Transient cerebral ischemic attack, unspecified (principal); I67.9 Cerebrovascular disease, unspecified | CPT/HCPCS: 99223; 99239 ==